=== PATIENT | male | born 1955 | race Caucasian/White ===

== ENCOUNTER 2021-11-25 15:25 | Outpatient (CLI) | payer BC, SELFPAY ==
[2021-11-25 20:34] LABS: SARS PCR* Negative SARS-CoV-2 (Negative)
== END 2021-11-25 15:26 | disposition home or self-care (01) ==
PROVIDERS: PCP Family Medicine; Visit Provider Family Medicine
DX: Z20.822 Contact with and (suspected) exposure to COVID-19 (principal); Z01.818 Encounter for other preprocedural examination; K40.90 Unilateral inguinal hernia, without obstruction or gangrene, not specified as recurrent
CPT/HCPCS: 87635

== ENCOUNTER 2021-11-27 07:11 | Day surgery (SDC) | payer BC, SELFPAY ==
[2021-11-27] VITALS (12 sets, daily range): BP systolic 121–151; BP diastolic 67–80; PULSE 39–52; RESP 12–16; TEMP 35.9–36.8; O2SAT 94–98; BMI 27.0
[2021-11-27] MEDS: LACTATED RINGERS 1000 ML 1,000 ML 100 ML IV ×2 (07:30→10:05)
[2021-11-27] MEDS: SODIUM CHLORIDE 0.9 % (FLUSH) 10 ML SYRINGE IVF (08:00)
[2021-11-27] MEDS: SCOPOLAMINE 1 MG/3 DAY PATCH 1 PATCH TRANSDERMA (08:15)
[2021-11-27] MEDS: CEFAZOLIN 2 GM INJ IVP (08:25)
[2021-11-27] MEDS: BUPIVACAINE 0.25% 30 ML 20 ML INJECTION (10:26)
--- NOTE | 2021-11-27 10:48 | W.ANESCHARGE ---
Anesthesia Charges Start Date/Time Anesthesia Start Date: 11/27/21 Anesthesia Start Time: 08:20 Stop Date/Time Anesthesia Stop Date: 11/27/21 Anesthesia Stop Time: 10:45 Summary Emergency: No
--- NOTE | 2021-11-27 12:36 | W.ANESCHARGE ---
Anesthesia Charges Start Date/Time Anesthesia Start Date: 11/27/21 Anesthesia Start Time: 08:20 Stop Date/Time Anesthesia Stop Date: 11/27/21 Anesthesia Stop Time: 10:45 Summary Emergency: No
--- NOTE | 2021-11-27 16:10 | PM.GSPRC ---
Operative Note Date of procedure: 11/27/21 Type of Procedure: Laparoscopic left inguinal hernia repair with placement of mesh Procedure Description: After discussing the risks and benefits of the procedure, the patient signed informed consent.? The operative site was marked and the patient was brought to the operating room and placed on the operating table in supine position.? Care was taken to pad the patient's pressure points.?? The patient was then intubated by anesthesia.?? The operative site was then prepped and draped in the usual sterile fashion.? A time-out was then performed. A curvilinear incision was made below the umbilicus. Dissection was carried down to subcutaneous tissue until the anterior rectus fascia was encountered. This was incised off the midline. The rectus muscles were then retracted exposing the posterior fascia. A space maker port with a dissecting balloon was then introduced. The preperitoneal space was inflated under direct vision. The balloon was then removed and the preperitoneal space insufflated. A 10 mm 30 degree scope was then advanced and the area was surveyed for bleeding. Dissection began on the left side. Ja's ligament and the pubic bone was exposed medially. Following this dissection was carried out laterally. A large direct defect was noted. The epigastrics were identified as being down on the surgical field. These were dissected in order to allow them to go towards the anterior abdominal wall. The cord structures were then identified and there was evidence of an indirect hernia. The sac was dissected free from the cord structures using a combination of sharp and blunt dissection. Once the sac was completely reduced, the cord structures were dissected circumfrentially and a piece of Parietex mesh for the appropriate side was placed into the abdomen. This was positioned around the cord structures. A Tacker was used to attach the mesh medially at Ja's ligament. Once this was completed the sac was placed on top of the mesh and the preperitoneal space desufflated under direct vision. The ports were removed. The fascia from the infraumbilical port was closed with 0 Vicryl. The skin incisions were closed with absorbable subcuticular suture. Sterile dressings were then applied. The scrotum was examined to ensure that both testicles were down. Instrument sponge and needle counts were correct at the end of the case. ? Sterile dressings were then applied. ? The patient was then woken and transported to the recovery area in stable condition. ? The patient tolerated the procedure well. Findings: Large direct and indirect right left inguinal hernia Anesthesia: GETA Surgeon: Verito Newby MD Estimated blood loss (mL): 15 Condition: stable Disposition: same day
== END 2021-11-27 12:40 | disposition home or self-care (01) ==
PROVIDERS: PCP Family Medicine; Visit Provider Surgery
PROC: (CPT 49650; principal; 2021-11-27 08:30)
DX: K40.90 Unilateral inguinal hernia, without obstruction or gangrene, not specified as recurrent (principal)
CPT/HCPCS: 49650; 00830; 00860; A9270; C1781; J0690; J1170; J2250; J2405; J2704; J3010; J3490; J7120

== ENCOUNTER 2021-12-08 08:02 | Outpatient (CLI) | payer BC, SELFPAY ==
[2021-12-08 13:47] LABS: Cholesterol* 155 mg/dL (90-199)
[2021-12-08 13:48] LABS: HDL Cholesterol* 49 mg/dL (>=40); LDL Cholesterol Calculated 95 mg/dL (<100); Triglycerides* 54 mg/dL (40-149)
[2021-12-08 14:16] LABS: PSA Screen* 2.97 ng/mL (0.10-4.00)
== END 2021-12-08 08:03 | disposition home or self-care (01) ==
PROVIDERS: PCP Family Medicine; Visit Provider Family Medicine
DX: E78.5 Hyperlipidemia, unspecified (principal); I10 Essential (primary) hypertension; Z12.5 Encounter for screening for malignant neoplasm of prostate
CPT/HCPCS: 80061; 84153

== ENCOUNTER 2022-12-09 08:25 | Outpatient (CLI) | payer BC, SELFPAY | END 2022-12-09 08:26 | disposition home or self-care (01) | PROVIDERS: PCP Family Medicine; Visit Provider Family Medicine | DX: I10 Essential (primary) hypertension (principal); E78.5 Hyperlipidemia, unspecified | CPT/HCPCS: 80048; 80061 ==

== ENCOUNTER 2023-01-25 06:39 | Outpatient (CLI) | payer BC, SELFPAY ==
--- NOTE | 2023-01-25 07:55 | W.ANESCHARGE ---
Anesthesia Charges Start Date/Time Anesthesia Start Date: 01/25/23 Anesthesia Start Time: 07:20 Stop Date/Time Anesthesia Stop Date: 01/25/23 Anesthesia Stop Time: 07:53
--- NOTE | 2023-01-25 08:27 | W.ANESCHARGE ---
Anesthesia Charges Start Date/Time Anesthesia Start Date: 01/25/23 Anesthesia Start Time: 07:20 Stop Date/Time Anesthesia Stop Date: 01/25/23 Anesthesia Stop Time: 07:53
== END 2023-01-25 06:40 | disposition home or self-care (01) ==
LOC: OP CLINIC 06:39
PROVIDERS: PCP Family Medicine; Visit Provider Surgery
DX: Z12.11 Encounter for screening for malignant neoplasm of colon (principal); K62.1 Rectal polyp; Z86.010 Personal history of colon polyps
CPT/HCPCS: 45385; 811; 88305; J2704

== ENCOUNTER 2024-01-21 08:24 | Outpatient (CLI) | payer BC, SELFPAY | END 2024-01-21 08:25 | disposition home or self-care (01) | PROVIDERS: PCP Family Medicine; Visit Provider Family Medicine | DX: E78.00 Pure hypercholesterolemia, unspecified (principal); I10 Essential (primary) hypertension; Z12.5 Encounter for screening for malignant neoplasm of prostate | CPT/HCPCS: 80048; 80061; G0103 ==

== ENCOUNTER 2025-01-22 08:16 | Outpatient (CLI) | payer BC, SELFPAY | END 2025-01-22 08:17 | disposition home or self-care (01) | PROVIDERS: PCP Family Medicine; Visit Provider Family Medicine | DX: I10 Essential (primary) hypertension (principal); E78.5 Hyperlipidemia, unspecified; Z12.5 Encounter for screening for malignant neoplasm of prostate | CPT/HCPCS: 80048; 80061; G0103 ==

== ENCOUNTER 2025-04-16 07:53 | Outpatient (CLI) | payer BC, SELFPAY | END 2025-04-16 07:54 | disposition home or self-care (01) | LOC: NFLDREF 04-19 16:17 | PROVIDERS: PCP Family Medicine; Referring Provider Family Medicine; Visit Provider Family Medicine | DX: R97.20 Elevated prostate specific antigen [PSA] (principal) | CPT/HCPCS: 84153 ==